=== PATIENT | female | born 2000 | race Caucasian/White ===

== ENCOUNTER 2023-01-29 08:50 | Emergency (ER) | payer MEDICAID, SELFPAY ==
[2023-01-29 09:05] VITALS: BP 136/92; PULSE 93; RESP 19; TEMP 36.8; O2SAT 100; BMI 22.6
[2023-01-29 09:13] VITALS: BP 159/107; PULSE 92; RESP 17; TEMP 36.6; O2SAT 100; BMI 21.2
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
--- NOTE | 2023-01-29 09:16 | PC.NURSE ---
pt ambulated from [facility] to ER9
--- NOTE | 2023-01-29 09:19 | PC.NURSE ---
calling for consult
--- NOTE | 2023-01-29 09:25 | PC.NURSE ---
spoke with sherie in , states she will let xu know about consult.
--- NOTE | 2023-01-29 09:31 | PC.NURSE ---
ED MD AT BEDSIDE TO EVALUATE PT
--- NOTE | 2023-01-29 09:41 | HMH.EDANX ---
Discharge Plan Disposition Patient Disposition: Home, Self-Care Prescriptions Prescriptions: New quetiapine [Seroquel] 50 mg tablet 50 mg PO HS Qty: 30 0RF buspirone 10 mg tablet 10 mg PO BID Qty: 60 0RF Referrals Follow up/Referrals: Provider,Referral, [Primary Care Provider] - See instructions Clinical Impressions Clinical Impression: Acute anxiety Discharge ED Provider: Luis Enrique Restrepo Anxiety HPI General Chief Complaint: Anxiety Stated Complaint: Restless, possible anxiety Time Seen by Provider: 01/29/23 09:13 Mode of Arrival: Ambulatory Source of Information: Patient Limitations: No Limitations Description of Symptoms (Recalled from ER Triage Doc. by RN): PT BROUGHT IN BY MOTHER, MOTHER REPORTS PT HAS NOT SLEPT IN ABOUT 2 DAYS. THAT PT IS ANXIOUS AND HAVING DELUSIONS. PT IS ALERT AND ORIENTED. PT DOES INTERACT WITH STAFF, REPORTS SHE HAD BEEN MEDICATED IN THE PAST BUT HAS NOT TAKEN BECAUSE SHE FORGETS TO TAKE IT. PT DOES NOT PROVIDE MUCH INFORMATION History of Present Illness HPI narrative: 22-year-old Roger[place] man and that female presents with no sleep for 2 days. The patient has been anxious is not sleeping. Mother reports that she has had suspicious paranoid ideation the patient herself is having difficulty focusing and understanding the questions being asked of her. She reports also that she has been taking some type of herbal energy preparation called Sissel. She apparently has been prescribed some sort of medication in the past for her moods but has not taken them. She has had no known allergic reaction to medicines Related Data Previous Rx's Medication Instructions Recorded buspirone 10 mg tablet 10 mg PO BID #60 tabs 01/29/23 quetiapine 50 mg tablet (Seroquel) 50 mg PO HS #30 tabs 01/29/23 Allergies Allergy/AdvReac Type Severity Reaction Status Date / Time No Known Allergies Allergy Verified 01/29/23 09:21 [facility] Disclaimer: The information contained in this section may have been updated after the patient was seen, as this information can be updated by other users. Medical History (Updated 01/29/23 @ 11:28 by Luis Enrique Restrepo MD) No significant past medical history Family History (Updated 01/29/23 @ 10:20 by Kristine Tam RN) Other No significant family history Social History (Updated 06/15/23 @ 10:20 by Kristine Tam RN) Smoking Status: Never smoker alcohol intake: never current occupational status: unemployed Travel in the last 8 weeks: None ROS Obtained: Yes All systems reviewed & no additional complaints except as documented Physical Exam General General appearance: alert and in no apparent distress Head Head exam: atraumatic and normocephalic Eye Eye exam: Present normal appearance Neck Neck exam: Present normal inspection Chest Chest inspection: Present normal inspection Respiratory Respiratory exam: Present normal lung sounds bilaterally Cardiovascular Cardiovascular exam: Present regular rate and normal rhythm Abdominal Exam Abdominal exam: Present soft; Absent tenderness Extremities Exam Extremities exam: Present normal inspection and full ROM; Absent tenderness Neurological Exam Neurological exam: Present alert, oriented X3 and CN II-XII intact Psychiatric Psychiatric exam: Present flat affect; Absent normal affect Medical Decision Making Medical Records MR Comment: 22-year-old white female seen with anxiety and insomnia for couple nights [facility] a [facility] history of emotional problems. She has been taking some sort of herbal stimulant called Sissel and has been prescribed some sort of pharmaceutical for her anxiety in the past which she did not take. She was seen by Joi Meléndez of behavioral health who has evaluated and recommended Seroquel 50 nightly BuSpar 10 twice daily and is coming back to collected [employer] test to optimize her mental health medications. I have recommended al
--- NOTE | 2023-01-29 09:55 | PC.NURSE ---
Joi Meléndez at the bedside
[2023-01-29 10:00] VITALS: PULSE 109; O2SAT 100
[2023-01-29 10:02] LABS: Basophils % 0.2 % (0.1-2.0); Eosinophils % 0.3 % (0.1-12.0); Hematocrit 39.6 % (37.0-47.0); Hemoglobin 12.9 g/dL (12.2-16.2); Lymphocytes # 1.4 K/mm3 (0.7-4.5); Lymphocytes % 16.7 % (10-50); MANUAL DIFFERENTIAL MANUAL DIFFERENTIAL (MANUAL DIFF); Mean Corpuscular HGB Conc 32.6 g/dL (31.8-35.4); Mean Corpuscular Volume 88.8 fl (81-99); Mean Platelet Volume 7.9 fl (7.4-10.4); Monocytes # 0.5 K/mm3 (0.1-1.0); Monocytes % 6.2 % (1.7-9.3); Neutrophils # 6.3 K/mm3 (1.8-7.8); Neutrophils % 76.5 % (37.0-80.0); Platelet Count 296 K/mm3 (142-424); Red Blood Count 4.46 M/mm3 (4.20-5.40); Red Cell Distribution Width 14.6 % (11.5-17.5); White Blood Count 8.2 K/mm3 (4.5-13.0)
[2023-01-29 10:17] LABS: HCG Qualitative, Serum Negative (Negative)
[2023-01-29 10:28] LABS: Chloride 103 mmol/L (98-107); Sodium 138 mmol/L (136-145)
[2023-01-29 10:29] LABS: Potassium 3.9 mmoL/L (3.5-5.1)
[2023-01-29 10:30] VITALS: BP 137/91; PULSE 95; O2SAT 99
[2023-01-29 10:31] LABS: Alanine Aminotransferase 19 U/L (12-78); Albumin Level 4.8 g/dl (3.5-5.0); Albumin/Globulin Ratio 1.7 (1.1-1.8); Alkaline Phosphatase 38 U/L (38-126); Anion Gap 14.9 mEq/L (5-15); Aspartate Amino Transferase 27 U/L (14-36); Bilirubin,Total 0.6 mg/dl (0.2-1.3); Blood Urea Nitrogen 7 mg/dl (7-17); Carbon Dioxide 24 mmol/L (22.0-30.0); Creatinine Clearance Estimated 112 mL/min (50-200); Estimated Glomerular Filt Rate 91 ml/min (>60); GFR (African American) 111 ML/MIN (>60); Globulin 2.9 g/dL (1.3-3.2); Total Protein,Serum 7.7 g/dl (6.3-8.2)
[2023-01-29 10:32] LABS: Calcium 9.4 mg/dl (8.4-10.2); Glucose 99 mg/dl (74-100)
[2023-01-29 10:33] LABS: Microscopic, Urine URINE MICROSCOPIC (MICROSCOPIC)
[2023-01-29 10:39] LABS: Appearance,Urine CLEAR (Clear); Bilirubin,Urine Negative (Negative); Blood, Urine Negative (Negative); Color,Urine YELLOW (Yellow); Glucose,Urine (UA) Negative (Negative); Ketones,Urine TRACE (Negative); Leukocyte Esterase,Urine Negative (Negative); Nitrate,Urine Negative (Negative); PH,Urine 6.5 (5.0-8.5); Protein,Urine Negative (Negative); Urobilinogen,Urine 0.2 EU/dl (0.2)
--- NOTE | 2023-01-29 10:55 | PC.NURSE ---
pt ambulatory to restroom without complications
[2023-01-29 10:58] LABS: Opiate Screen,Urine Negative ng/ml (<300)
[2023-01-29 10:59] LABS: Phencyclidine Screen,Urine Negative ng/ml (<25)
[2023-01-29 11:00] VITALS: BP 138/88; PULSE 78; O2SAT 98
[2023-01-29 11:02] LABS: Amphetamine/Metha Screen,Urine Negative ng/ml (<1000)
[2023-01-29 11:02] LABS: Thyroid Stimulating Hormone 1.39 uIU/mL (0.465-4.68)
--- NOTE | 2023-01-29 11:02 | PC.NURSE ---
pt back to ED room 9 from restroom without complications. Pt hooked back up to monitor, no other needs at this time. Family at BS, call moncada within reach
[2023-01-29 11:03] LABS: Barbiturates Screen,Urine Negative ng/ml (<200); Benzodiazepines Screen,Urine Negative ng/ml (<200)
[2023-01-29 11:03] LABS: Lymphocytes % 30 % (10-50); Monocytes % 1 % (2-9); Neutrophils % 69 % (42-76); Platelet Estimate Normal; RBC Morphology Normal; Total Cells Counted 100
[2023-01-29 11:04] LABS: Cocaine Screen,Urine Negative ng/ml (<300)
[2023-01-29 11:05] LABS: Methadone Screen,Urine Negative ng/ml (<300)
[2023-01-29 11:07] LABS: Bacteria,Urine Trace /lpf; Squamous Epithelial Cell,Urine Occasional #/hpf (0-5); WBC,Urine Occasional #/hpf (0-3)
--- NOTE | 2023-01-29 11:07 | PC.NURSE ---
NURSING STAFF FROM BEHAVIORAL HEALTH AT BEDSIDE TO MAKE APPT FOR PT FOLLOW-UP
[2023-01-29 11:16] LABS: Cannabinoid Screen,Urine Negative ng/ml (<50)
--- NOTE | 2023-01-29 11:20 | PC.NURSE ---
PT AND FAMILY UPDATED ON POC
[2023-01-29 11:36] VITALS: BP 138/79; PULSE 101; RESP 20; TEMP 36.6; O2SAT 100
--- NOTE | 2023-01-29 16:29 | EXP.BH.CONS ---
History of Present Illness *Admission Date: 01/29/23 *Reason for visit:: hallucinations *History of present illness: I saw patient in the ER. -her father was at bedside with her -I asked him to step out of the room so we could talk -Camelia talked to him in [place] and he said that he would stay with her -towards the end of the interview; her mother also joined She states that she came in today related to anxiety. -that this has been going on for a couple days -and she hasn't slept good in 48 hours; slept none last night at all -she states that she felt she was fighting a tsang -she was in her room just screaming -she was scared that her mom isn't happy in her relationship -not sure why she thinks this -she states that she felt that her mom was going to hell -that she felt everyone's voices were in her head -that there was something there with them that shouldn't have been there -she states that she felt someone was there to hurt her family -she states that there are some changes going on at home but doesn't elaborate on this -she lives at home with her mom, dad, and 6 siblings -she is the oldest -there are 4 boys and 2 other girls besides her She denies that she has ever taken any medicines for these kinds of feelings. -will take natural things -but she stopped whatever she was taking last week -her mom reports she was taking 'power plus' I asked her if this has happened to her before. -she states that it doesn't happen often -that it is just something you have to go through to get out of it -to get out of the mess she is in She states that they brought her here cause she was not talking like herself. -she can't remember exactly PER MOM: -she was screaming -afraid of mom -thought she heard gun shots -thought mom was poisoning her -that someone was there to hurt her mom -mom has seen this coming on for a while -but didn't know how to stop it -she states that they used to be best friends; but the past 2 years; she has pulled away from her -Camelia states that she felt guilty cause her mom wasn't happy -mom states that Camelia's maternal grandmother had the same thoughts often -she states that her mom was not well and ended up taking a lot of medicines -also states that one of her mom's sisters had episodes like this [facility] Disclaimer: The information contained in this section may have been updated after the patient was seen, as this information can be updated by other users. Medical History (Updated 01/29/23 @ 16:39 by Joi Meléndez APRN) Acute paranoia No significant past medical history Family History (Updated 01/29/23 @ 10:20 by Kristine Tam RN) No significant family history Social History (Updated 01/29/23 @ 10:20 by Kristine Tam RN) Smoking Status: Never smoker alcohol intake: never current occupational status: unemployed Travel in the last 8 weeks: None Review of Systems *Neurologic Neurologic: Reports system reviewed and no additional complaints, except as documented, Reports as per HPI and Reports other Meds Home Medications and Allergies Home Medications Medication Instructions Recorded Confirmed Type buspirone 10 mg tablet 10 mg PO BID #60 tabs 01/29/23 Rx quetiapine 50 mg tablet (Seroquel) 50 mg PO HS #30 tabs 01/29/23 Rx New Prescriptions to Start Prescriptions: buspironLuis Enrique Mccauley quetiapine [Seroquel] Luis Enrique Restrepo Allergies Allergy/AdvReac Type Severity Reaction Status Date / Time No Known Allergies Allergy Verified 01/29/23 09:21 Assessment and Plan *Assessment and plan (1) Acute paranoia: Status: Acute Category: Medical Code(s): F22 - Delusional disorders (2) Acute anxiety: Status: Acute Category: Medical Code(s): F41.9 - Anxiety disorder, unspecified Plan Start Seroquel 50mg at bedtime. STart Buspar 10mg BID--mom states that she gave
== END 2023-01-29 11:37 | disposition home or self-care (01) ==
LOC: UTC 08:54 → ER 09:11
PROVIDERS: Emergency Provider Emergency Medicine
DX: F41.9 Anxiety disorder, unspecified (principal); R45.1 Restlessness and agitation; F22 Delusional disorders
CPT/HCPCS: 80053; 80305; 81001; 84443; 84703; 85007; 85014; 85018; 85048; 85049; 99284; 99285

== ENCOUNTER 2024-06-17 13:42 | Emergency (ER) | payer MEDICAID, SELFPAY ==
[2024-06-17 13:42] VITALS: BP 138/93; PULSE 112; RESP 18; TEMP 36.7; O2SAT 100; BMI 21.4
[2024-06-17] MEDS: LORazepam 1MG TABLET 1 MG PO (14:22)
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
[2024-06-17 14:31] VITALS: BP 156/84; PULSE 109; O2SAT 100
[2024-06-17 15:53] VITALS: BP 156/84; PULSE 109; RESP 13; TEMP 36.7
== END 2024-06-17 15:53 | disposition home or self-care (01) ==
PROVIDERS: Emergency Provider Emergency Medicine
DX: F41.9 Anxiety disorder, unspecified (principal)
CPT/HCPCS: 99283